=== PATIENT | male | born 1960 | race Caucasian/White ===

== ENCOUNTER 2019-03-02 21:08 | Emergency (ER) | payer MEDICAID ==
[~2019-03-02] VITALS: Ht 180.3 cm; Wt 66.0 kg
[2019-03-02] MEDS ORDERED: HYDR-4383 PO (22:47)
[2019-03-02] MEDS ORDERED: HYDROcodone/acetaminophen 5mg/325mg tablet PO ONE (23:20)
[2019-03-02 23:29] VITALS: BP 191/113
== END 2019-03-02 23:32 | disposition home or self-care (01) ==
LOC: ER 21:09
DX: S92.001A Unspecified fracture of right calcaneus, initial encounter for closed fracture (principal); I10 Essential (primary) hypertension; F17.200 Nicotine dependence, unspecified, uncomplicated; Z98.890 Other specified postprocedural states; W11.XXXA Fall on and from ladder, initial encounter; Y93.89 Activity, other specified; Y92.89 Other specified places as the place of occurrence of the external cause; Y99.9 Unspecified external cause status
CPT/HCPCS: 29515; 73610; 73630; 99284

== ENCOUNTER 2024-01-11 19:46 | Emergency (ER) | payer MEDICAID ==
[~2024-01-11] VITALS: Ht 180.3 cm; Wt 64.0 kg
[~2024-01-11 19:46] MED LIST: HYDR-4383 PO
[2024-01-11 19:50] VITALS: BP 180/109; PULSE 102; RESP 19; TEMP 98.1; O2SAT 98
== END 2024-01-11 21:09 | disposition home or self-care (01) ==
LOC: ER 19:46
DX: S50.851A Superficial foreign body of right forearm, initial encounter (principal); I10 Essential (primary) hypertension; X58.XXXA Exposure to other specified factors, initial encounter; Y93.89 Activity, other specified; Y92.89 Other specified places as the place of occurrence of the external cause; Y99.8 Other external cause status
CPT/HCPCS: 99281; 99284